=== PATIENT | male | born 2000 | race Caucasian/White ===

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

== ENCOUNTER 2023-08-22 00:38 | Emergency (ER) | payer MEDICAID ==
[2023-08-22 00:46] VITALS: TEMP 97.7
[2023-08-22] MEDS ORDERED: Fluor-I-Strip/Ful-Flo OP ONE (01:49)
[2023-08-22] MEDS ORDERED: TETRACAINE 0.5% STERI-UNIT SOL OP ONE (01:49)
[2023-08-22] MEDS ORDERED: Erythromycin 1 GM ONE (01:49)
--- NOTE | 2023-08-22 01:50 | ERPHSYRPT ---
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 Physician History: 23-year-old male presents to our ED for evaluation of burning to both eyes. 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 Patient was intermittently using his mask. Patient awoke this evening with burning sensation in his eyes. Patient likely experienced UV keratitis. No other injuries. No BHT or LOC. No neck pain. No acute change in vision. No nausea no vomiting. Symptoms are moderate in intensity. Patient states his eyes are sensitive to light. Patient voices no other complaints or concerns at this time. Portions of this note were created with voice recognition technology. There may be grammatical, spelling, punctuation or sound alike errors Timing/Duration: today Location: bilateral eyes Severity: moderate Apparent Injury: no Associated Symptoms: sensitivity to light, redness, No eyelid swelling, No double vision Visual Assistive Devices: None (No contacts no eyeglasses) Chemical Exposure: No Trauma: No Welding Arc/Tanning Bed Exposure: Yes Allergies/Adverse Reactions: No Known Drug Allergies Allergy (Verified 08/22/23 00:52) Hx Tetanus, Diphtheria Vaccination/Date Given: Yes Hx Influenza Vaccination/Date Given: Yes (2020) Hx Pneumococcal Vaccination/Date Given: No Immunizations Up to Date: No Travel Risk - International Travel Have you traveled outside of the country in past 3 weeks: No - Coronavirus Screening Are you exhibiting any of the following symptoms?: No Close contact with a COVID-19 positive Pt in past 14-21 Days: No - Vaccine Status Have you recieved a Covid-19 vaccination: No - Review of Systems Constitutional: No Symptoms, No Fever, No Chills Eyes: No Symptoms Ears, Nose, & Throat: No Symptoms Respiratory: No Symptoms, No Cough, No Dyspnea Cardiac: No Symptoms, No Chest Pain, No Edema, No Syncope Abdominal/Gastrointestinal: No Symptoms, No Abdominal Pain, No Nausea, No Vomiting, No Diarrhea Genitourinary Symptoms: No Symptoms, No Dysuria Musculoskeletal: No Symptoms, No Back Pain, No Neck Pain Skin: No Symptoms, No Rash Neurological: No Symptoms, No Dizziness, No Focal Weakness, No Sensory Changes Psychological: No Symptoms Endocrine: No Symptoms Hematologic/Lymphatic: No Symptoms Immunological/Allergic: No Symptoms All Other Systems: Reviewed and Negative - Past Medical History Pertinent Past Medical History: No - Past Surgical History Past Surgical History: Yes Neuro Surgical History: No Pertinent History Cardiac: No Pertinent History Respiratory: No Pertinent History Gastrointestinal: No Pertinent History Genitourinary: No Pertinent History Musculoskeletal: Orthopedic Surgery Male Surgical History: No Pertinent History Other Surgical History: forearm and leg surgery. - Social History Smoking Status: Never smoker Exposure to second hand smoke: No Drug Use: none Patient Lives Alone: No - Nursing Vital Signs Nursing Vital Signs: Initial Vital Signs Temperature 97.7 F 08/22/23 00:45 Pulse Rate 56 L 08/22/23 00:45 Respiratory Rate 18 08/22/23 00:45 Blood Pressure 150/77 08/22/23 00:45 O2 Sat by Pulse Oximetry 100 08/22/23 00:45 Pain Scale Pain Intensity 6 - Physical Exam General Appearance: no apparent distress Vision Acuity Degree Evaluation Phase: Uncorrected Vision Acuity Right Eye: 20/70 Vision Acuity Left Eye: 20/70 Intraocular Pressure (Tonopen): both eyes (Intraocular pressure is 15 bilaterally) Eye Exam: bilateral eye: PERRL, EOMI, other (Multiple punctate lesions observed on Bonner lamp/fluorescein exam.This is consistent with UV keratitis) Ears, Nose, Throat Exam: normal ENT inspection, TMs normal, pharynx normal Neck Exam: normal inspection, non-tender, supple, full range of motion Respiratory Exam: normal breath sounds, chest tenderness, lungs clear, respiratory distress Cardiovascular Exam: regular rate/rhythm, normal heart sounds, normal peripheral pulses Gastrointestinal Exam: soft, normal bowel sounds, No tenderness Extremity Exam: normal inspection, normal range of motion Neurologic: alert, oriented x 3, cooperative, patient services representative II-XII nml as tested Skin Exam: normal color, warm, dry Lymphatic: No adenopathy SpO2 Interpretation: normal SpO2: 100 O2 Delivery: Room Air - Course Nursing assessment & vital signs reviewed: Yes Ordered Tests: Medication Summary Discontinued Medications Generic Name Dose Route Start Last Admin Trade Name Caroline PRN Reason Stop Dose Admin Acetaminophen 975 mg 08/22/23 01:52 08/22/23 01:54 Acetaminophen 325 Mg Tablet PO 08/22/23 01:53 Not Given STAT ONE Erythromycin Confirm 08/22/23 01:49 Erythromycin Base 1 Gm Tube Eye Ointment Administered 08/22/23 01:50 Dose 1 gm .ROUTE .STK-MED ONE Erythromycin 1 gm 08/22/23 01:54 08/22/23 02:05 Erythromycin Base 1 Gm Tube Eye Ointment OP 08/22/23 01:55 1 gm STAT STA Administration Eye Irrigation Solution Confirm 08/22/23 01:51 Sodium/Potassium/Mulugeta/Magnesium 30 Ml Eye Wash Administered 08/22/23 01:52 Dose 30 ml .ROUTE .STK-MED ONE Eye Irrigation Solution 15 ml 08/22/23 01:56 08/22/23 02:05 Sodium/Potassium/Mulugeta/Magnesium 30 Ml Eye Wash OP 08/22/23 01:57 15 ml STAT ONE Administration Fluorescein Sodium Confirm 08/22/23 01:49 Fluorescein Sodium 1 Mg/Strip Strip Administered 08/22/23 01:50 Dose 1 mg OP .STK-MED ONE Ketorolac Tromethamine 60 mg 08/22/23 01:51 08/22/23 01:54 Ketorolac Tromethamine 30 Mg/Ml Inj IM 08/22/23 01:52 60 mg STAT ONE Administration Ketorolac Tromethamine Confirm 08/22/23 01:53 Ketorolac Tromethamine 30 Mg/Ml Inj Administered 08/22/23 01:54 Dose 60 mg .ROUTE .STK-MED ONE Tetracaine HCl Confirm 08/22/23 01:49 Tetracaine Hcl/Pf 4 Ml Bottle Administered 08/22/23 01:50 Dose 4 ml OP .STK-MED ONE Tetracaine HCl 4 ml 08/22/23 01:57 08/22/23 02:08 Tetracaine Hcl/Pf 4 Ml Bottle OP 08/22/23 01:58 4 ml STAT STA Administration - Progress Progress: improved Progress Note: Patient is a 23-year-old male presents to our ED for evaluation of burning to both eyes after arc welding all day long. Physical exam reveals increased punctate uptake throughout both corneas. No change in visual acuity Normal eye pressures. Findings consistent with UV keratitis. Patient declined Toradol IM. Patient had Tylenol prior to arrival. Erythromycin ophthalmic applied. A prescription for the same was forwarded to patient's pharmacy. Patient advised to follow-up with this eye doctor within 48 hours for reevaluation. Patient agreed. Significant other at bedside. They voiced no other complaints or concerns at this time. Patient states his eye pain resolved after administration of tetracaine.Tetracaine was not prescribed or given to patient. Portions of this note were created with voice recognition technology. There may be grammatical, spelling, punctuation or sound alike errors Complexity of problem addressed is Moderate acute complicated Complex of data reviewed is none. Diagnosis made based on history and physical examination. No specialized testing ordered. Risk of complication and or risk of morbidity/mortality of patient management is moderate. For erythromycin ophthalmic and Toradol was forwarded to patient's pharmacy. Patient agrees to follow-up with his eye doctor within 48 hours for a reevaluation. Vital stable. Time spent to discharge patient approximately 15 minutes. Plan of care established for shared decision making. No social determinants of health present impede follow-up. Portions of this note were created with voice recognition technology. There may be grammatical, spelling, punctuation or sound alike errors 08/22/23 02:33 Counseled pt/family regarding: diagnosis, need for follow-up - Departure Departure Disposition: Home Clinical Impression: UV keratitis Condition: Stable Critical Care Time: No Instructions: How to Care for Your Eyes Additional Instructions: Please follow-up with your eye doctor within 48 hours for reevaluation. Discharge/Care Plan SHEA LEDESMA was seen on 08/22/23 in the Emergency Room. The patient was counseled regarding Diagnosis,Lab results, Imaging studies, need for follow up and when to return to the Emergency Room. Prescriptions given: Discharge Note I have spoken with the patient and/or caregivers. I have explained the patient's condition, diagnosis and treatment plan based on the information available to me at this time. I have answered the patient's and/or caregiver's questions and addressed any concerns. The patient and/or caregivers have as good understanding of the patient's diagnosis, condition and treatment plan as can be expected at this point. The vital signs have been stable. The patient's condition is stable and appropriate for discharge from the emergency department. The patient will pursue further outpatient evaluation with the primary care physician or other designated or consulting physician as outlined in the discharge instructions. The patient and/or caregivers are agreeable to this plan of care and follow-up instructions have been explained in detail. The patient and/or caregivers have received these instruction. The patient/and or caregivers are aware that any significant change in condition or worsening of symptoms should prompt an immediate return to this or the closest emergency department or call 911. Prescriptions: Erythromycin Base 3.5 gm [Erythromycin 3.5 GM OPHTH.] 3.5 gm OP QID 7 Days #1 unit Ketorolac Trometh 10 mg Tab [TORAdol 10 MG TABLET] 10 mg PO TID 5 Days #15 tablet
[2023-08-22] MEDS ORDERED: TORAdol 30 mg Injection IM ONE (01:51)
[2023-08-22] MEDS ORDERED: Eye-Stream Solution ONE (01:51)
[2023-08-22] MEDS ORDERED: TYLENOL 325 MG PO ONE (01:52)
[2023-08-22] MEDS ORDERED: TORAdol 30 mg Injection ONE (01:53)
[2023-08-22] MEDS ORDERED: Erythromycin 1 GM OP STA (01:54)
[2023-08-22] MEDS ORDERED: Eye-Stream Solution OP ONE (01:56)
[2023-08-22] MEDS ORDERED: TETRACAINE 0.5% STERI-UNIT SOL OP STA (01:57)
[2023-08-22 02:06] VITALS: BP 138/77; PULSE 63; RESP 18
[2023-08-22 02:24] VITALS: O2SAT 100
== END 2023-08-22 02:19 | disposition home or self-care (01) ==
LOC: ED 00:38
DX: H16.133 Photokeratitis, bilateral (principal); W89.0XXA Exposure to welding light (arc), initial encounter; Z28.310 Unvaccinated for COVID-19
CPT/HCPCS: 96372; 99283; J1885; A9270-GY